=== PATIENT | female | born 1995 | race Caucasian/White ===

== ENCOUNTER 2017-11-06 14:16 | Emergency (ER) | payer OTHER, BC ==
[~2017-11-06] VITALS: Ht 165.1 cm; Wt 54.4 kg
[~2017-11-06 14:16] MED LIST: ACCUNEB SO1.25 MG/1 INH; AUGMENTIN 875875 MG PO; BACTRIM; BIRTH CONTROL; CARAFATE 1 GM TA1 GM PO; CEPHALEXIN 500500 M1 PO; CIPROFLOXACIN500 M1 PO; FLOMAX0.4 MG PO; GENTAMICIN SU3 MG/ML OPHTHALMIC; HYDROCHLOROTH12.5 M1 PO; HYDROCODONE-AP1 EAC6 PO; KEFLEX500 M1 PO; MACROBID 100 M100 M3 PO; NECON1 EAC4 PO; OSCIMIN0.125 MG PO; OXYBUTYNIN 5 MG5 M2 PO; OXYCODONE; OXYCODONE HCL5 MG PO; OXYCONTIN15 MG PO; PERCOCET 5-3251 EACH PO; POTASSIUM CITRATE PO; PREVACID 24HR15 MG PO; PYRIDIUM200 MG PO; TAMSULOSIN HCL0.4 M1 PO; TRINATE TABLET1 TAB; ZOFRAN ODT4 MG DISSOLVE; ZOFRAN ODT4 MG PO; ZOFRAN4 MG PO; ZOLOFT25 MG PO
[2017-11-06] MEDS ORDERED: BIRTH CONTROL (14:26)
[2017-11-06 14:40] LABS: URINE BILIRUBIN NEGATIVE (Negative); URINE BLOOD 3+ (Negative); URINE CLARITY SL CLOUDY; URINE COLOR YELLOW; URINE GLUCOSE-RANDOM NEGATIVE (Negative); URINE KETONES NEGATIVE (Negative); URINE NITRITE-REFLEX NEGATIVE (Negative); URINE PROTEIN 2+ (Negative); URINE SPECIFIC GRAVITY 1.015 (1.005-1.030); URINE UROBILINOGEN 0.2 E.U./dl (0.2-1.0)
[2017-11-06 14:45] LABS: URINE LEUKOCYTES-REFLEX 2+ (Negative)
[2017-11-06 14:53] LABS: MUCUS >6 Heavy strn/LPF (None Seen); SQUAMOUS >10 Many /LPF (0-3)
[2017-11-06 14:55] LABS: URINE RBC >20 Many /HPF (0-2)
[2017-11-06 14:56] LABS: CASTS None Seen /LPF (None Seen); URIC ACID CRYSTALS 0-3 Few /LPF (None Seen); URINE WBC-REFLEX 6-15 Few /HPF (0-5)
[2017-11-06 14:58] LABS: BACTERIA-REFLEX 1-9 Few /HPF (None Seen)
[2017-11-06 15:01] LABS: ABSOLUTE EOSINOPHILS 0.1 thou/uL (0.0-0.7); ABSOLUTE LYMPHOCYTES 2.6 thou/uL (0.8-5.3); ABSOLUTE MONOCYTES 0.7 thou/uL (0.0-1.2); ABSOLUTE NEUTROPHILS 5.6 thou/uL (1.6-8.1); BASOPHILS 0.4 %; HEMATOCRIT 35.1 % (37.0-47.0); HEMOGLOBIN 12.3 gm/dL (12.0-15.0); LYMPHOCYTES 28.6 %; MCH 32.5 pg (26.0-34.0); MCHC 35.2 g/dL (28.0-37.0); MCV 92.5 fL (80.0-100.0); MONOCYTES 7.9 %; MPV 11.9 fl. (7.2-11.1); NUCLEATED RBCS 0 /100WBC; PLATELET COUNT* 167 thou/uL (150-400); POLYS 62.1 %; RBC 3.79 mil/uL (4.20-5.00); RDW-CV 12.4 % (10.5-14.5); WBC 9.1 thou/uL (4.0-11.0)
[2017-11-06 15:11] LABS: CALCIUM 8.6 mg/dL (8.5-10.1); CREATININE 0.8 mg/dL (0.6-1.3); POTASSIUM 3.4 mmol/L (3.5-5.1)
[2017-11-06 15:15] LABS: ALBUMIN 3.5 g/dL (3.4-5.0); TOTAL BILIRUBIN 0.3 mg/dL (<0.1-1.0); TOTAL PROTEIN 7.3 g/dL (6.4-8.2)
[2017-11-06] MEDS ORDERED: NORCO 5-325 TA1 EAC1 PO (15:57)
[2017-11-06] MEDS ORDERED: FLOMAX0.4 MG PO (15:57)
[2017-11-06] MEDS ORDERED: CIPRO500 MG PO (15:57)
[2017-11-06 16:15] VITALS: BP 104/69
== END 2017-11-06 16:15 | disposition home or self-care (01) ==
LOC: M.ERS 14:16
PROVIDERS: Physician Assistant
DX: N20.1 Calculus of ureter (principal); J45.909 Unspecified asthma, uncomplicated; F17.210 Nicotine dependence, cigarettes, uncomplicated; Z86.19 Personal history of other infectious and parasitic diseases; Z98.890 Other specified postprocedural states

== ENCOUNTER 2018-05-09 03:32 | Emergency (ER) | payer OTHER, BC ==
[~2018-05-09 03:32] MED LIST changes: +CIPRO500 MG PO; +NORCO 5-325 TA1 EAC1 PO
== END 2018-05-09 03:51 | disposition left against medical advice (07) ==
LOC: M.ERS 03:32
DX: Z53.21 Procedure and treatment not carried out due to patient leaving prior to being seen by health care provider (principal)

== ENCOUNTER 2020-04-18 23:18 | Emergency (ER) | payer OTHER, MEDICAID ==
[~2020-04-18] VITALS: Ht 154.9 cm; Wt 63.5 kg
[2020-04-18] MEDS ORDERED: THIOLA100 MG PO (23:25)
[2020-04-18 23:59] LABS: URINE BILIRUBIN NEGATIVE (Negative); URINE BLOOD 2+ (Negative); URINE CLARITY CLEAR; URINE COLOR YELLOW; URINE GLUCOSE-RANDOM NEGATIVE (Negative); URINE KETONES NEGATIVE (Negative); URINE LEUKOCYTES-REFLEX TRACE (Negative); URINE NITRITE-REFLEX NEGATIVE (Negative); URINE PROTEIN NEGATIVE (Negative); URINE SPECIFIC GRAVITY 1.015 (1.005-1.030); URINE UROBILINOGEN 0.2 E.U./dl (0.2-1.0)
[2020-04-19 00:23] LABS: AMORPHOUS URATES Few /LPF (None Seen); BACTERIA-REFLEX >30 Many /HPF (None Seen); CASTS None Seen /LPF (None Seen); MUCUS 4-6 Moderate strn/LPF (None Seen); SQUAMOUS 0-3 Few /LPF (0-3); URINE RBC 3-10 Few /HPF (0-2); URINE WBC-REFLEX 6-15 Few /HPF (0-5)
[2020-04-19 00:59] LABS: ABSOLUTE EOSINOPHILS 0.2 thou/uL (0.0-0.7); ABSOLUTE LYMPHOCYTES 2.1 thou/uL (0.8-5.3); ABSOLUTE MONOCYTES 0.6 thou/uL (0.0-1.2); ABSOLUTE NEUTROPHILS 2.8 thou/uL (1.6-8.1); BASOPHILS 0.3 %; EOSINOPHILS 3.1 %; HEMATOCRIT 37.8 % (37.0-47.0); HEMOGLOBIN 13.2 gm/dL (12.0-15.0); LYMPHOCYTES 36.7 %; MCH 31.9 pg (26.0-34.0); MCHC 34.9 g/dL (28.0-37.0); MCV 91.3 fL (80.0-100.0); MONOCYTES 10.7 %; MPV 11.3 fl. (7.2-11.1); NUCLEATED RBCS 0 /100WBC; PLATELET COUNT* 128 thou/uL (150-400); POLYS 49.2 %; RBC 4.14 mil/uL (4.20-5.00); RDW-CV 12.7 % (10.5-14.5); WBC 5.7 thou/uL (4.0-11.0)
[2020-04-19 01:02] LABS: CALCIUM 8.6 mg/dL (8.5-10.1); CREATININE 1.2 mg/dL (0.6-1.3); POTASSIUM 3.8 mmol/L (3.5-5.1)
[2020-04-19] MEDS ORDERED: BACTRIM DS TAB1 EACH PO (03:43)
[2020-04-19] MEDS ORDERED: ZOFRAN ODT4 MG PO (03:43)
[2020-04-19 04:13] VITALS: BP 105/72
== END 2020-04-19 04:15 | disposition home or self-care (01) ==
LOC: M.ERS 23:18
PROVIDERS: Emergency Medicine
DX: N20.0 Calculus of kidney (principal); N39.0 Urinary tract infection, site not specified; N32.89 Other specified disorders of bladder; F17.210 Nicotine dependence, cigarettes, uncomplicated; J45.909 Unspecified asthma, uncomplicated; Z90.89 Acquired absence of other organs; Z86.19 Personal history of other infectious and parasitic diseases; Z79.899 Other long term (current) drug therapy

== ENCOUNTER 2020-04-26 22:09 | Emergency (ER) | payer OTHER, MEDICAID ==
[~2020-04-26] VITALS: Ht 154.9 cm; Wt 61.2 kg
[~2020-04-26 22:09] MED LIST changes: +BACTRIM DS TAB1 EACH PO; +THIOLA100 MG PO
[2020-04-26] MEDS ORDERED: KEFLEX500 M1 PO ×2 (22:48→23:02)
[2020-04-26 23:06] VITALS: BP 125/75
== END 2020-04-26 23:07 | disposition home or self-care (01) ==
LOC: M.ERS 22:09
DX: S80.12XA Contusion of left lower leg, initial encounter (principal); S80.811A Abrasion, right lower leg, initial encounter; J45.909 Unspecified asthma, uncomplicated; F17.210 Nicotine dependence, cigarettes, uncomplicated; Z86.19 Personal history of other infectious and parasitic diseases; Z87.442 Personal history of urinary calculi; Z90.49 Acquired absence of other specified parts of digestive tract; Z90.89 Acquired absence of other organs; W39.XXXA Discharge of firework, initial encounter; Y93.89 Activity, other specified; Y92.89 Other specified places as the place of occurrence of the external cause; Y99.8 Other external cause status

== ENCOUNTER 2020-06-24 08:59 | Emergency (ER) | payer OTHER, MEDICAID ==
[~2020-06-24] VITALS: Ht 154.9 cm; Wt 61.2 kg
[2020-06-24 09:30] LABS: HEMATOCRIT 41.5 % (37.0-47.0); HEMOGLOBIN 14.4 gm/dL (12.0-15.0); MCH 31.6 pg (26.0-34.0); MCHC 34.8 g/dL (28.0-37.0); MPV 10.1 fl. (7.2-11.1); RBC 4.57 mil/uL (4.20-5.00)
[2020-06-24 09:32] LABS: URINE BILIRUBIN NEGATIVE (Negative); URINE BLOOD TRACE (Negative); URINE CLARITY CLEAR; URINE COLOR YELLOW; URINE GLUCOSE-RANDOM NEGATIVE (Negative); URINE KETONES NEGATIVE (Negative); URINE LEUKOCYTES-REFLEX 1+ (Negative); URINE NITRITE-REFLEX NEGATIVE (Negative); URINE PROTEIN NEGATIVE (Negative); URINE SPECIFIC GRAVITY 1.015 (1.005-1.030); URINE UROBILINOGEN 0.2 E.U./dl (0.2-1.0)
[2020-06-24 09:32] LABS: CREATININE 0.9 mg/dL (0.6-1.3); POTASSIUM 3.8 mmol/L (3.5-5.1)
[2020-06-24 09:52] LABS: CASTS None Seen /LPF (None Seen); CRYSTALS None Seen /LPF (None Seen); SQUAMOUS 0-3 Few /LPF (0-3); URINE RBC 0-2 Rare /HPF (0-2); URINE WBC-REFLEX 0-5 Rare /HPF (0-5)
[2020-06-24] MEDS ORDERED: MACROBID 100 M100 M1 PO (10:36)
[2020-06-24] MEDS ORDERED: ZOFRAN ODT4 MG PO (10:36)
[2020-06-24] MEDS ORDERED: HYDROCODON-ACE1 EAC7 PO (10:36)
[2020-06-24 10:57] VITALS: BP 110/60
== END 2020-06-24 10:57 | disposition home or self-care (01) ==
LOC: M.ERS 08:59
PROVIDERS: Personal Emergency Response Attendant
DX: N20.2 Calculus of kidney with calculus of ureter (principal); J45.909 Unspecified asthma, uncomplicated; F17.210 Nicotine dependence, cigarettes, uncomplicated; Z88.8 Allergy status to other drugs, medicaments and biological substances; Z86.19 Personal history of other infectious and parasitic diseases; Z90.49 Acquired absence of other specified parts of digestive tract; Z90.89 Acquired absence of other organs

== ENCOUNTER → 2020-08-02 | Outpatient (CLI) | payer OTHER, MEDICAID ==
[~2020-08-02] MED LIST changes: +HYDROCODON-ACE1 EAC7 PO; +MACROBID 100 M100 M1 PO
== END ==
LOC: M.RAD 15:00
PROVIDERS: ATTEND Nurse Practitioner
DX: R05 Cough (principal)

== ENCOUNTER 2020-11-08 16:40 | Emergency (ER) | payer OTHER, MEDICAID ==
[~2020-11-08] VITALS: Ht 154.9 cm; Wt 59.0 kg
[2020-11-08 16:57] LABS: URINE BILIRUBIN NEGATIVE (Negative); URINE BLOOD 1+ (Negative); URINE CLARITY CLEAR; URINE COLOR YELLOW; URINE GLUCOSE-RANDOM NEGATIVE (Negative); URINE KETONES NEGATIVE (Negative); URINE LEUKOCYTES-REFLEX NEGATIVE (Negative); URINE NITRITE-REFLEX NEGATIVE (Negative); URINE PROTEIN 2+ (Negative); URINE UROBILINOGEN 0.2 E.U./dl (0.2-1.0)
[2020-11-08 17:04] LABS: SQUAMOUS >10 Many /LPF (0-3)
[2020-11-08 17:05] LABS: MUCUS None Seen strn/LPF (None Seen); URINE RBC 3-10 Few /HPF (0-2); URINE WBC-REFLEX 0-5 Rare /HPF (0-5)
[2020-11-08 17:06] LABS: AMORPHOUS PHOSPHATES Moderate /LPF (None Seen); CASTS None Seen /LPF (None Seen)
[2020-11-08 17:13] LABS: ABSOLUTE EOSINOPHILS 0.1 thou/uL (0.0-0.7); ABSOLUTE LYMPHOCYTES 2.1 thou/uL (0.8-5.3); ABSOLUTE MONOCYTES 0.5 thou/uL (0.0-1.2); ABSOLUTE NEUTROPHILS 3.7 thou/uL (1.6-8.1); BASOPHILS 0.3 %; EOSINOPHILS 1.6 %; HEMATOCRIT 40.4 % (37.0-47.0); LYMPHOCYTES 32.3 %; MCH 31.4 pg (26.0-34.0); MCHC 34.7 g/dL (28.0-37.0); MCV 90.5 fL (80.0-100.0); MPV 9.7 fl. (7.2-11.1); NUCLEATED RBCS 0 /100WBC; PLATELET COUNT* 208 thou/uL (150-400); POLYS 57.8 %; RBC 4.47 mil/uL (4.20-5.00); RDW-CV 12.6 % (10.5-14.5); WBC 6.4 thou/uL (4.0-11.0)
[2020-11-08 17:22] LABS: CALCIUM 8.9 mg/dL (8.5-10.1); POTASSIUM 3.8 mmol/L (3.5-5.1)
[2020-11-08 17:26] LABS: ALBUMIN 3.9 g/dL (3.4-5.0); TOTAL BILIRUBIN 0.4 mg/dL (<0.1-1.0); TOTAL PROTEIN 7.6 g/dL (6.4-8.2)
[2020-11-08] MEDS ORDERED: FLOMAX0.4 MG PO (17:35)
[2020-11-08] MEDS ORDERED: TORADOL 10 MG T10 MG PO (17:35)
[2020-11-08] MEDS ORDERED: NORCO 10-325 T1 EACH PO (17:35)
[2020-11-08 18:01] VITALS: BP 115/70
== END 2020-11-08 18:01 | disposition home or self-care (01) ==
LOC: M.ERS 16:40
PROVIDERS: Nurse Practitioner Family
DX: N20.0 Calculus of kidney (principal); R31.9 Hematuria, unspecified; J45.909 Unspecified asthma, uncomplicated; F17.210 Nicotine dependence, cigarettes, uncomplicated; Z90.89 Acquired absence of other organs; Z79.899 Other long term (current) drug therapy; Z91.048 Other nonmedicinal substance allergy status